=== PATIENT | female | born 1950 | race Caucasian/White ===

== ENCOUNTER 2017-02-28 11:23 | Emergency (ER) | payer OTHER, MEDICAID ==
[2017-02-28 11:44] VITALS: BP 170/86; PULSE 76; RESP 19; TEMP 98.8; O2SAT 95
--- NOTE | 2017-02-28 13:10 | EDPHY ---
H & P Time Seen by Provider: 02/28/17 12:39 HPI/ROS: CHIEF COMPLAINT: Urinary frequency, leg and back pain HISTORY OF PRESENT ILLNESS: Patient is a 67-year-old female who presents emergency department with urinary frequency. She had 8 episodes urination over the course of the night. She denies dysuria or hematuria. She has had no abdominal pain. No nausea vomiting. The patient states that she has leg pain bilaterally extending to her low back. This is chronic and persistent. She denies fevers or chills. No Weakness or numbness REVIEW OF SYSTEMS: My complete review of systems is negative except as mentioned in the HPI. Past Medical/Surgical History: Includes hypertension, PTSD, anxiety, pneumonia, diabetes Smoking Status: Heavy smoker Physical Exam: 37.1, 170/86, 76, 99 95% on room air GENERAL: No acute distress, alert. Patient is standing at her bedside leaning over and going through her purse HEENT: Eyes normal to inspection, normal pharynx, no signs of dehydration. NECK: No thyromegaly, no lymphadenopathy, supple. RESPIRATORY: Clear to auscultation bilaterally, no rales, rhonchi or wheezing. CVS: Regular rate and rhythm, no rubs, murmurs, or gallops. ABDOMEN: Soft, nontender, nondistended, no organomegaly. BACK: Normal to inspection, no CVA tenderness. SKIN: Normal color, no rash, warm, dry. No pallor. EXTREMITIES: No pedal edema, no calf tenderness, no Homans sign or cords, no joint swelling. NEURO/PSYCH: Alert and oriented x3, normal mood and affect, normal motor sensory exam. No obvious cranial nerve deficit. Constitutional: Initial Vital Signs Temperature (C) 37.1 C 02/28/17 11:39 Heart Rate 76 02/28/17 11:39 Respiratory Rate 19 02/28/17 11:39 Blood Pressure 170/86 H 02/28/17 11:39 O2 Sat (%) 95 02/28/17 11:39 O2 Delivery Mode Room Air Allergies/Adverse Reactions: trazodone Allergy (Severe, Verified 07/02/10 18:55) aspirin [Aspirin] Allergy (Verified 07/02/10 18:54) Penicillins Allergy (Verified 07/02/10 18:54) Home Medications: Medication Instructions Recorded ATENOLOL 09/22/09 STELAZINE 09/22/09 Wellbutrin 09/22/09 Xanax 09/22/09 CYCLOBENZAPRINE HCL [Flexeril] 5 mg PO TIDPRN PRN #8 tab 04/09/16 Phenazopyridine HCl [Pyridium] 100 mg PO TID #6 tab 02/28/17 Medical Decision Making ED Course/Re-evaluation: In the emergency department I discussed possible etiologies with the patient answered all her questions. An IV was placed. Laboratory studies were obtained. I reviewed the patient's laboratory studies. White count was minimally elevated at 10. Otherwise the CBC was unremarkable. Chemistry panel was normal. Patient's urine was negative. I discussed the results with the patient. On re-examination she continued to complain of back discomfort. She does states this is chronic. She has no abdominal pain. It is soft nontender nondistended. She has no focal neurologic deficits. Patient was given Pyridium for her frequency. She will follow up with primary care physician. She was given warnings prior to leaving. Differential Diagnosis: My differential includes but is not limited to urinary tract infection, pyelonephritis, kidney stone, small-bowel obstruction, perforation, bacteremia, sepsis - Data Points Laboratory Results: Laboratory Results 02/28/17 12:10 02/28/17 12:10 02/28/17 02/28/17 02/28/17 12:10 12:10 11:55 WBC 10.99 10^3/uL H 10^3/uL (3.80-9.50) RBC 4.66 10^6/uL 10^6/uL (4.18-5.33) Hgb 15.2 g/dL g/dL (12.6-16.3) Hct 43.3 % % (38.0-47.0) MCV 92.9 fL fL (81.5-99.8) MCH 32.6 pg pg (27.9-34.1) MCHC 35.1 g/dL g/dL (32.4-36.7) RDW 12.6 % % (11.5-15.2) Plt Count 297 10^3/uL 10^3/uL (150-400) MPV 9.9 fL fL (8.7-11.7) Neut % (Auto) 46.1 % % (39.3-74.2) Lymph % (Auto) 45.2 % H % (15.0-45.0) [place] % (Auto) 6.3 % % (4.5-13.0) Eos % (Auto) 1.5 % % (0.6-7.6) Baso % (Auto) 0.4 % % (0.3-1.7) Nucleat RBC Rel Count 0.0 % % (0.0-0.2) Absolute Neuts (auto) 5.07 10^3/uL 10^3/uL (1.70-6.50) Absolute Lymphs (auto) 4.97 10^3/uL H 10^3/uL (1.00-3.00) Absolute Monos (auto) 0.69 10^3/uL 10^3/uL (0.30-0.80) Absolute Eos (auto) 0.17 10^3/uL 10^3/uL (0.03-0.40) Absolute Basos (auto) 0.04 10^3/uL 10^3/uL (0.02-0.10) Absolute Nucleated RBC 0.00 10^3/uL 10^3/uL (0-0.01) Immature Gran % 0.5 % % (0.0-1.1) Immature Gran # 0.05 10^3/uL 10^3/uL (0.00-0.10) Sodium 139 mEq/L mEq/L (134-144) Potassium 4.4 mEq/L mEq/L (3.5-5.2) Chloride 104 mEq/L mEq/L (97-110) Carbon Dioxide 22 mEq/l mEq/l (22-31) Anion Gap 13 mEq/L mEq/L (8-16) BUN 13 mg/dL mg/dL (7-23) Creatinine 0.7 mg/dL mg/dL (0.6-1.0) Estimated GFR > 60 Glucose 110 mg/dL H mg/dL (70-100) Calcium 9.5 mg/dL mg/dL (8.5-10.4) Urine Color COLORLESS Urine Appearance CLEAR Urine pH 7.0 (5.0-7.5) Ur Specific [place] 1.002 (1.002-1.030) Urine Protein NEGATIVE (NEGATIVE) Urine Ketones NEGATIVE (NEGATIVE) Urine Blood NEGATIVE (NEGATIVE) Urine Nitrate NEGATIVE (NEGATIVE) Urine Bilirubin NEGATIVE (NEGATIVE) Urine Urobilinogen NEGATIVE EU EU (0.2-1.0) Ur Leukocyte Esterase NEGATIVE (NEGATIVE) Urine Glucose NEGATIVE (NEGATIVE) Departure - Departure Disposition: Home, Routine, Self-Care Clinical Impression: Frequency of urination Back pain Qualifiers: Back pain location: low back pain Chronicity: acute Back pain laterality: bilateral Sciatica presence: without sciatica Qualified Code(s): M54.5 - Low back pain Condition: Good Instructions: Dysuria (ED), Back Pain (ED) Additional Instructions: Return with increasing pain, dysuria, frequency or any other concerns. Referrals: Gracie Quach DO [Doctor of Osteopathy] - 5-7 days, call for appt. Prescriptions: Phenazopyridine HCl [Pyridium] 100 mg PO TID #6 tab
[2017-02-28 13:17] LABS: COLOR COLORLESS; LEUKOCYTE ESTERASE,URINE NEGATIVE (NEGATIVE); NITRITE,URINE NEGATIVE (NEGATIVE)
[2017-02-28 13:20] LABS: % IMMATURE GRANULYOCYTES 0.5 % (0.0-1.1); ABSOLUTE IMMATURE GRANULOCYTES 0.05 10^3/uL (0.00-0.10); ADD DIFF? NO; ADD MORPH? NO; ADD SCAN? NO; ATYPICAL LYMPHOCYTE FLAG 0 (0-99); FRAGMENT RBC FLAG 0 (0-99); HEMATOCRIT 43.3 % (38.0-47.0); HEMOGLOBIN 15.2 g/dL (12.6-16.3); LEFT SHIFT FLG 0 (0-99); LIPEMIA HEMOLYSIS FLAG 90 (0-99); MEAN CELL HEMOGLOBIN 32.6 pg (27.9-34.1); MEAN CELL HEMOGLOBIN CONCENTR. 35.1 g/dL (32.4-36.7); MEAN CELL VOLUME 92.9 fL (81.5-99.8); MEAN PLATELET VOLUME 9.9 fL (8.7-11.7); PLATELET CLUMPS FLAG 20 (0-99); PLATELET COUNT 297 10^3/uL (150-400); RED BLOOD CELL COUNT 4.66 10^6/uL (4.18-5.33); RED CELL DISTRIBUTION WIDTH 12.6 % (11.5-15.2)
[2017-02-28 13:28] LABS: ANION GAP 13 mEq/L (8-16); CALCIUM 9.5 mg/dL (8.5-10.4); CARBON DIOXIDE 22 mEq/l (22-31); CHLORIDE 104 mEq/L (97-110); CREATININE 0.7 mg/dL (0.6-1.0); GLOMERULAR FILTRATION RATE > 60; GLUCOSE 110 mg/dL (70-100); POTASSIUM 4.4 mEq/L (3.5-5.2); SODIUM 139 mEq/L (134-144)
== END 2017-02-28 14:57 | disposition home or self-care (01) ==
LOC: EDUNIT#
DX: R35.0 Frequency of micturition (principal); M54.5 Low back pain; I10 Essential (primary) hypertension; E11.9 Type 2 diabetes mellitus without complications; F17.200 Nicotine dependence, unspecified, uncomplicated; Z79.82 Long term (current) use of aspirin

== ENCOUNTER 2017-10-24 20:42 | Emergency (ER) | payer OTHER, MEDICAID ==
[2017-10-24 20:57] VITALS: BP 169/64
[2017-10-24] MEDS ORDERED: CEPHALEXIN 500 MG CAP PO ONE (21:21)
--- NOTE | 2017-10-24 21:22 | EDPHY ---
H & P Stated Complaint: Pt trimmed ingrown nail R great toe, concern about pain and infection Time Seen by Provider: 10/24/17 21:02 HPI/ROS: Chief Complaint: Ingrown toenail HPI: The patient presents to the ED with mild erythema on her right great toe. She had an ingrown toenail which she cut back earlier today. She has some minimal erythema and tenderness to the area. She denies fever additional complaints. REVIEW OF SYSTEMS: Neuro: no headache, numbness, weakness Musculoskeletal: as above Skin: As above - Personal History Current Tetanus/Diphtheria Vaccine: Unsure - Medical/Surgical History Hx Asthma: No Hx Chronic Respiratory Disease: No Hx Diabetes: Yes Hx Cardiac Disease: No Hx Renal Disease: No Hx Cirrhosis: No Hx Alcoholism: No Hx HIV/AIDS: No Hx Splenectomy or Spleen Trauma: No Other PMH: PMH: HTN, PTSD, Anxiety, PNA, Diabetes type 11 - Social History Smoking Status: Heavy smoker - Physical Exam Exam: General: No acute distress Right foot: Minimal erythema noted to the right great toe, nail trephination performed by patient prior to arrival Neuro: Sensation intact to light touch Constitutional: Initial Vital Signs Temperature (C) 36.6 C 10/24/17 20:53 Heart Rate 86 10/24/17 20:53 Respiratory Rate 16 10/24/17 20:53 Blood Pressure 169/64 H 10/24/17 20:53 O2 Sat (%) 96 10/24/17 20:53 O2 Delivery Mode Room Air Allergies/Adverse Reactions: trazodone Allergy (Severe, Verified 10/24/17 20:57) aspirin [Aspirin] Allergy (Verified 10/24/17 20:57) Penicillins Allergy (Verified 10/24/17 20:57) Home Medications: Medication Instructions Recorded ATENOLOL 09/22/09 STELAZINE 09/22/09 Wellbutrin 09/22/09 Xanax 09/22/09 Cephalexin [Keflex] 500 mg PO TID #21 cap 10/24/17 Medical Decision Making ED Course/Re-evaluation: Patient will be started on Keflex for mild soft tissue infection. She is given her 1st dose in the emergency department. She is advised to continue to soak the toe in warm baths frequently. She will follow up with her regular physician at [facility]. She is discharged home with customary aftercare instructions. Departure - Departure Disposition: Home, Routine, Self-Care Clinical Impression: Cellulitis of right toe Condition: Good Instructions: Cellulitis (ED) Additional Instructions: 1. Take antibiotics as directed for next week. 2. Return to the ED for markedly worsening pain, redness, fever or swelling. 3. Follow up with your regular physician for a recheck within the week. Referrals: Anna Moulton PA [Physician Screedman/Laborer] - As per Instructions
== END 2017-10-24 21:32 | disposition home or self-care (01) ==
DX: L03.031 Cellulitis of right toe (principal); I10 Essential (primary) hypertension; F17.200 Nicotine dependence, unspecified, uncomplicated; E11.9 Type 2 diabetes mellitus without complications

== ENCOUNTER 2018-07-19 19:00 | Emergency (ER) | payer OTHER, MEDICAID ==
[2018-07-19] MEDS ORDERED: NS 2,300 ML IV ONE (19:56)
--- NOTE | 2018-07-19 20:01 | EDPHY ---
H & P Stated Complaint: cough, sob, fevers Time Seen by Provider: 07/19/18 19:41 HPI/ROS: CHIEF COMPLAINT: Cough, fevers and chills HISTORY OF PRESENT ILLNESS: Patient is a 68-year-old female who reports a history of cough nonproductive as well as fevers and chills for the last month. She did get a flu vaccine this year. She states that this feels similar to when she had viral pneumonia in [place] several years ago. She has not taken her temperature. She is afebrile here. She is type 2 diabetic on metformin. No headache or neck stiffness. No new GI or urinary symptoms. No rashes or wounds. Severity: Moderate Modifying factors: None REVIEW OF SYSTEMS: Constitutional: See HPI EENTM: denies: blurred vision, double vision, nose congestion Respiratory: See HPI Cardiac: denies: chest pain, irregular heart rate, lightheadedness, palpitations Gastrointestinal/Abdominal: denies: abdominal pain, diarrhea, nausea, vomiting, blood streaked stools Genitourinary: denies: dysuria, frequency, hematuria, pain Musculoskeletal: denies: joint pain, muscle pain Skin: denies: lesions, rash, jaundice, bruising Neurological: denies: headache, numbness, paresthesia, tingling, dizziness, weakness Hematologic/Lymphatic: denies: blood clots, easy bleeding, easy bruising Immunologic/allergic: denies: HIV/AIDS, transplant 10 systems reviewed and negative except as noted EXAM: GENERAL: Elderly, somewhat disheveled HEAD: Atraumatic, normocephalic. EYES: Pupils equal round and reactive to light, extraocular movements intact, sclera anicteric, conjunctiva are normal. ENT: TMs normal, nares patent, oropharynx clear without exudates. Moist mucous membranes. NECK: Normal range of motion, supple without lymphadenopathy or JVD. LUNGS: Breath sounds clear to auscultation bilaterally and equal. No wheezes rales or rhonchi. HEART: Regular rate and rhythm without murmurs, rubs or gallops. ABDOMEN: Soft, nontender, normoactive bowel sounds. No guarding, no rebound. No masses appreciated. BACK: No CVA tenderness, no spinal tenderness, step-offs or deformities EXTREMITIES: Normal range of motion, no pitting or edema. No clubbing or cyanosis. NEUROLOGICAL: Cranial nerves II through XII grossly intact. Normal speech, normal gait. 5/5 strength, normal movement in all extremities, normal sensation , normal reflexes PSYCH: Normal mood, normal affect. SKIN: Warm, dry, normal turgor, no visible rashes or lesions. Source: Patient Exam Limitations: No limitations - Personal History Current Tetanus Diphtheria and Acellular Pertussis (TDAP): Yes - Medical/Surgical History Hx Asthma: No Hx Chronic Respiratory Disease: No Hx Diabetes: Yes Hx Cardiac Disease: No Hx Renal Disease: No Hx Cirrhosis: No Hx Alcoholism: No Hx HIV/AIDS: No Hx Splenectomy or Spleen Trauma: No Other PMH: PMH: HTN, PTSD, Anxiety, PNA, Diabetes type 11 - Family History Significant Family History: No pertinent family hx - Social History Smoking Status: Heavy smoker Alcohol Use: None Constitutional: Initial Vital Signs Temperature (C) 36.7 C 07/19/18 19:04 Heart Rate 103 H 07/19/18 19:04 Respiratory Rate 18 07/19/18 19:04 Blood Pressure 196/89 H 07/19/18 19:04 O2 Sat (%) 95 07/19/18 19:04 O2 Delivery Mode Room Air Allergies/Adverse Reactions: trazodone Allergy (Severe, Verified 07/19/18 19:07) aspirin [Aspirin] Allergy (Verified 07/19/18 19:07) cat dander Allergy (Verified 07/19/18 19:07) Penicillins Allergy (Verified 07/19/18 19:07) Home Medications: Medication Instructions Recorded ATENOLOL 09/22/09 STELAZINE 09/22/09 Xanax 09/22/09 Azithromycin 250 mg PO DAILY #4 tablet 07/19/18 Gabapentin 07/19/18 Metformin HCl 07/19/18 Medical Decision Making - Diagnostics Imaging Results: Imaging Impressions Chest X-Ray 07/19/18 19:57 Impression: 1. Suspect airways disease with associated left basilar atelectasis. 2. Borderline cardiac enlargement.. Imaging: Discussed imaging studies w/ administrator Radiologist ED Course/Re-evaluation: 9:00 p.m. patient's x-rays reassuring. Lab work is reassuring. She is providing a urine sample right now. I suspect that she does have a viral respiratory tract infection. This is also what she suspects. She declines further workup or testing at this time and is ready to go home. Will start her on albuterol because she states that this helped before. She is also requesting a Z-Ko stating that this always helps her. Will give her the 1st dose here. Discussed indications for returning. Respiratory PCR still pending however she is out of any type of window for Tamiflu etc. Urinalysis is unremarkable. Differential Diagnosis: Partial list of the Differential diagnosis considered include but were not limited to; upper respiratory tract infection, bronchitis, pneumonia and although unlikely based on the history and physical exam, I also considered sepsis, urinary tract infection. I discussed these differential diagnoses and the plan with the patient as well as the usual and expected course. The patient understands that the diagnosis is provisional and that in medicine we are not always correct and that further workup is often warranted. Usual and customary warnings were given. All of the patient's questions were answered. The patient was instructed to return to the emergency department should the symptoms at all worsen or return, otherwise to followup with the physician as we discussed. - Data Points Laboratory Results: Laboratory Results 07/19/18 20:27 07/19/18 20:27 07/19/18 07/19/18 07/19/18 21:06 20:27 20:27 WBC RBC Hgb Hct MCV MCH MCHC RDW Plt Count MPV Neut % (Auto) Lymph % (Auto) [place] % (Auto) Eos % (Auto) Baso % (Auto) Nucleat RBC Rel Count Absolute Neuts (auto) Absolute Lymphs (auto) Absolute Monos (auto) Absolute Eos (auto) Absolute Basos (auto) Absolute Nucleated RBC Immature Gran % Immature Gran # PT 12.5 SEC SEC (12.0-15.0) INR 0.97 (0.83-1.16) APTT 28.6 SEC SEC (23.0-38.0) VBG Lactic Acid Sodium 133 mEq/L L mEq/L (135-145) Potassium 4.5 mEq/L mEq/L (3.5-5.2) Chloride 100 mEq/L mEq/L (97-110) Carbon Dioxide 23 mEq/l mEq/l (22-31) Anion Gap 10 mEq/L mEq/L (6-14) BUN 13 mg/dL mg/dL (7-23) Creatinine 0.8 mg/dL mg/dL (0.6-1.0) Estimated GFR > 60 Glucose 123 mg/dL H mg/dL (70-100) Calcium 10.0 mg/dL mg/dL (8.5-10.4) Total Bilirubin 0.4 mg/dL mg/dL (0.1-1.4) Urine Color PALE YELLOW Urine Appearance CLEAR Urine pH 7.0 (5.0-7.5) Ur Specific [place] 1.005 (1.002-1.030) Urine Protein NEGATIVE (NEGATIVE) Urine Ketones NEGATIVE (NEGATIVE) Urine Blood NEGATIVE (NEGATIVE) Urine Nitrate NEGATIVE (NEGATIVE) Urine Bilirubin NEGATIVE (NEGATIVE) Urine Urobilinogen NEGATIVE EU EU (0.2-1.0) Ur Leukocyte Esterase NEGATIVE (NEGATIVE) Urine RBC 1-3 /hpf /hpf (0-3) Urine WBC 1-3 /hpf /hpf (0-3) Ur Epithelial Cells NONE SEEN /lpf /lpf (NONE-1+) Urine Glucose NEGATIVE (NEGATIVE) 07/19/18 07/19/18 20:27 20:27 WBC 11.03 10^3/uL H 10^3/uL (3.80-9.50) RBC 4.81 10^6/uL 10^6/uL (4.18-5.33) Hgb 15.4 g/dL g/dL (12.6-16.3) Hct 45.0 % % (38.0-47.0) MCV 93.6 fL fL (81.5-99.8) MCH 32.0 pg pg (27.9-34.1) MCHC 34.2 g/dL g/dL (32.4-36.7) RDW 12.4 % % (11.5-15.2) Plt Count 289 10^3/uL 10^3/uL (150-400) MPV 9.6 fL fL (8.7-11.7) Neut % (Auto) 51.2 % % (39.3-74.2) Lymph % (Auto) 39.1 % % (15.0-45.0) [place] % (Auto) 6.6 % % (4.5-13.0) Eos % (Auto) 2.2 % % (0.6-7.6) Baso % (Auto) 0.4 % % (0.3-1.7) Nucleat RBC Rel Count 0.0 % % (0.0-0.2) Absolute Neuts (auto) 5.66 10^3/uL 10^3/uL (1.70-6.50) Absolute Lymphs (auto) 4.31 10^3/uL H 10^3/uL (1.00-3.00) Absolute Monos (auto) 0.73 10^3/uL 10^3/uL (0.30-0.80) Absolute Eos (auto) 0.24 10^3/uL 10^3/uL (0.03-0.40) Absolute Basos (auto) 0.04 10^3/uL 10^3/uL (0.02-0.10) Absolute Nucleated RBC 0.00 10^3/uL 10^3/uL (0-0.01) Immature Gran % 0.5 % % (0.0-1.1) Immature Gran # 0.05 10^3/uL 10^3/uL (0.00-0.10) PT INR APTT VBG Lactic Acid 1.9 mmol/L mmol/L (0.7-2.1) Sodium Potassium Chloride Carbon Dioxide Anion Gap BUN Creatinine Estimated GFR Glucose Calcium Total Bilirubin Urine Color Urine Appearance Urine pH Ur Specific [place] Urine Protein Urine Ketones Urine Blood Urine Nitrate Urine Bilirubin Urine Urobilinogen Ur Leukocyte Esterase Urine RBC Urine WBC Ur Epithelial Cells Urine Glucose Microbiology Results: MICROBIOLOGY 07/19/18 20:27 Nasal, Sinus - Swab Respiratory Panel (PCR) - Final No Organism Detected By Pcr Medications Given: Discontinued Medications Albuterol Sulfate (Proventil Inh Prepack) 1 mdi TAKEHOME EDNOW ONE Stop: 07/19/18 21:17 Last Admin: 07/19/18 21:25 Dose: 1 mdi Azithromycin (Zithromax) 500 mg PO EDNOW ONE PRN Reason: Protocol Stop: 07/19/18 21:16 Last Admin: 07/19/18 21:24 Dose: 500 mg Sodium Chloride (Ns) 2,300 mls @ 4,600 mls/hr 30 ml/kg infuse over 30 min ( 2300 ml) IV EDNOW ONE PRN Reason: Protocol Stop: 07/19/18 20:25 Last Admin: 07/19/18 20:00 Dose: 2,300 mls Point of Care Test Results: Urine Dip Collection Date 07/19/18 Collection Time 21:06 Specific [place] (1.002-1.030) 1.005 PH (5.0-7.5) 7.5 Leukocytes (Negative) Negative Nitrites (Negative) Negative Protein (Negative) Negative Glucose (Negative) Negative Ketones (Negative) Negative Urobilnogen (0.2-1.0 EU) 0.2 Bilirubin (Negative) Negative Blood (Negative) Negative Departure - Departure Disposition: Home, Routine, Self-Care Clinical Impression: Acute bronchitis Qualifiers: Bronchitis organism: unspecified organism Qualified Code(s): J20.9 - Acute bronchitis, unspecified Condition: Fair Instructions: Albuterol (By breathing), Acute Bronchitis (ED) Referrals: Anna Moulton PA [Primary Care Provider] - 2-3 days, call for appt. Prescriptions: Azithromycin 250 mg PO DAILY #4 tablet
[2018-07-19 20:57] LABS: PLATELET COUNT 289 10^3/uL (150-400)
[2018-07-19 21:05] LABS: INR 0.97 (0.83-1.16); PROTIME(PATIENT) 12.5 SEC (12.0-15.0)
[2018-07-19] MEDS ORDERED: AZITHROMYCIN 250 MG TAB PO ONE (21:15)
[2018-07-19] MEDS ORDERED: ALBUTEROL INH PREPACK MDI TAKEHOME ONE (21:16)
[2018-07-19 21:44] VITALS: BP 143/85
== END 2018-07-19 21:46 | disposition home or self-care (01) ==
DX: J20.9 Acute bronchitis, unspecified (principal); E86.9 Volume depletion, unspecified; I10 Essential (primary) hypertension; E11.9 Type 2 diabetes mellitus without complications; F41.9 Anxiety disorder, unspecified; F43.10 Post-traumatic stress disorder, unspecified; F17.200 Nicotine dependence, unspecified, uncomplicated